=== PATIENT | female | born 1970 | race Hispanic/Latino ===

== ENCOUNTER 2023-09-18 21:14 | Emergency (ER) | payer OTHER ==
[~2023-09-18] VITALS: Ht 152.4 cm; Wt 69.9 kg
[2023-09-18 22:59] LABS: RAPID GROUP A STREP negative (NEGATIVE)
[2023-09-18 23:04] LABS: SARS-CoV-2, RNA, NAAT NEGATIVE SARS CoV-2 (NEGATIVE)
[2023-09-18 23:09] LABS: INFLUENZA TYPE A Negative For Type A (NEGATIVE); INFLUENZA TYPE B Negative For Type B (NEGATIVE)
[2023-09-19] MEDS ORDERED: 0.9%NACL 1000ML 1,000 ML IV ONE
[2023-09-19] MEDS ORDERED: ACETAMINOPHEN 500 MG TABLET PO ONE
[2023-09-19] MEDS ORDERED: ONDANSETRON 4MG INJ IVP ONE
[2023-09-19 00:39] LABS: BASOPHILS # (AUTO) 0.02 K/uL (0.00-0.20); BASOPHILS % (AUTO) 0.2 % (0.0-5.0); HEMATOCRIT 49.4 % (36-48); IMMATURE GRANULOCYTE ABSOLUTE 0.05 K/uL (0-1); LYMPHOCYTES # (AUTO) 0.8 K/uL (1.0-4.8); LYMPHOCYTES % (AUTO) 10.4 % (21.0-51.0); MEAN CORPUSCULAR HEMOGLOBIN 31.9 pg (27.0-33.0); MEAN CORPUSCULAR HGB CONC 33.6 g/dL (32.0-36.0); MEAN CORPUSCULAR VOLUME 94.8 fL (79-99); MONOCYTES # (AUTO) 0.3 K/uL (0.1-1.0); MONOCYTES % (AUTO) 3.6 % (3.0-13.0); NEUTROPHILS # (AUTO) 6.8 K/uL (1.8-7.7); NEUTROPHILS % (AUTO) 85.2 % (40.0-77.0); PLATELET COUNT (AUTO) 279 K/uL (130-400); RED BLOOD CELL COUNT(AUTO) 5.21 MIL/uL (4.00-5.50); RED CELL DISTRIBUTION WIDTH 13.2 % (11.0-15.5)
[2023-09-19 00:50] LABS: CREATININE 1.2 mg/dL (0.5-1.5)
[2023-09-19 00:55] LABS: ALBUMIN 3.7 g/dL (3.5-5.0); BILIRUBIN,TOTAL 0.4 mg/dL (0.2-1.0); TOTAL PROTEIN, SERUM 8.7 g/dL (6.0-8.3)
[2023-09-19] MEDS ORDERED: FAMOTIDINE 20MG VIAL IV ONE ×2 (00:58→01:00)
[2023-09-19] MEDS ORDERED: METOCLOPRAMIDE 10 MG/2 ML VIAL ONE (00:58)
[2023-09-19] MEDS ORDERED: METOCLOPRAMIDE 10 MG/2 ML VIAL IVP ONE (01:00)
[2023-09-19] MEDS ORDERED: PRED20TA3 PO (01:01)
[2023-09-19] MEDS ORDERED: IBUP-2070 PO (01:01)
[2023-09-19] MEDS ORDERED: ONDA4TAB10 PO (01:01)
[2023-09-19] MEDS ORDERED: FAMO20TA8 PO (01:01)
[2023-09-19] MEDS ORDERED: OSEL75 PO (01:01)
[2023-09-19 01:32] VITALS: BP 148/82; PULSE 99; RESP 18; O2SAT 99
== END 2023-09-19 01:59 | disposition home or self-care (01) ==
LOC: EDH 21:14
DX: E86.0 Dehydration (principal); E11.9 Type 2 diabetes mellitus without complications; Z20.828 Contact with and (suspected) exposure to other viral communicable diseases; Z91.51 Personal history of suicidal behavior; Z88.1 Allergy status to other antibiotic agents; Z88.2 Allergy status to sulfonamides; Z88.6 Allergy status to analgesic agent
CPT/HCPCS: 99284; 87635; 80053; 83690; 85025; 87880; 87804 ×2; 82948; 36415; 96374; 96375; 96361; C9803; J2405; J3490; J2765